=== PATIENT | male | born 1995 | race Two or more races ===

== ENCOUNTER 2023-03-09 08:38 | Emergency (ER) | payer OTHER ==
[~2023-03-09] VITALS: Ht 157.5 cm; Wt 90.7 kg
[2023-03-09] MEDS ORDERED: LOSARTAN POTASS50 MG PO (08:51)
== END 2023-03-09 12:56 | disposition home or self-care (01) ==
LOC: ER 08:38
DX: I10 Essential (primary) hypertension (principal)